=== PATIENT | male | born 1995 | race African-American/Black ===

== ENCOUNTER 2019-11-11 19:05 | Emergency (ER) | payer OTHER ==
[2019-11-11] MEDS ORDERED: IBUPROFEN 600 MG TABLET (FP) PO ONE ×2 (19:31→19:32)
[2019-11-11] MEDS ORDERED: DIPHTH,PERTUSS(ACELL),TET 0.5 ML DISP.SYRIN IM ONE ×2 (19:31→19:33)
[2019-11-11] MEDS ORDERED: AMOX TR/POT CLAV 875MG/125MG TABLETS (FP) PO ONE (19:31)
[2019-11-11 19:33] VITALS: BP 127/69; PULSE 68; TEMP 98.7; BMI 35.9
[2019-11-11] MEDS ORDERED: AMOX TR/POT CLAV 875MG/125MG TABLETS (FP) ONE (19:33)
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
== END 2019-11-11 20:11 | disposition home or self-care (01) ==
LOC: FER 19:05
PROC: 3E0234Z Introduction of Serum, Toxoid and Vaccine into Muscle, Percutaneous Approach (ICD-10-PCS; principal; 2019-11-11)
DX: S61.459A Open bite of unspecified hand, initial encounter (principal); S51.851A Open bite of right forearm, initial encounter; Y04.1XXA Assault by human bite, initial encounter; Y93.89 Activity, other specified; Y92.159 Unspecified place in reform school as the place of occurrence of the external cause; Y99.0 Civilian activity done for income or pay
CPT/HCPCS: 90715; 99283-25